=== PATIENT | female | born 1970 | race Two or more races ===

== ENCOUNTER 2017-02-20 17:56 | Emergency (ER) | payer SELFPAY ==
[~2017-02-20] VITALS: Ht 167.6 cm; Wt 76.2 kg
[2017-02-20 18:12] VITALS: BP 146/87
[2017-02-20] MEDS ORDERED: NAPROXEN 500 MG TABLET PO STA (19:05)
[2017-02-20] MEDS ORDERED: HYDROcodone/APAP 5/325MG 1 TAB TABLET PO ONE (19:15)
[2017-02-20] MEDS ORDERED: CYCLOBENZAPRINE 10 MG TABLET. PO ONE (19:15)
--- NOTE | 2017-02-20 19:27 | PHYS DOC ---
Past Medical History Past Medical History: No Pertinent History Past Surgical History: Alcohol Use: None Drug Use: None Adult General Chief Complaint Chief Complaint: MECHANICAL FALL HPI HPI Patient is a 46 year old female Polish-speaking female patient with her own historic interpreter who presents complaining of pain on her left mid back pain, low back and left lateral hip after falling. Patient states she was walking in her kitchen and the floor was wet, she did splits and fell on her buttocks. Patient denies any loss of consciousness. Denies any loss of bowel bladder function. Review of Systems Review of Systems Constitutional: Denies fever or chills [] Eyes: Denies change in visual acuity, redness, or eye pain [] HENT: Denies nasal congestion or sore throat [] Respiratory: Denies cough or shortness of breath [] Cardiovascular: No additional information not addressed in HPI [] GI: Denies abdominal pain, nausea, vomiting, bloody stools or diarrhea [] : Denies dysuria or hematuria [] Musculoskeletal: pain on her left mid back, low back and left lateral hip Integument: Denies rash or skin lesions [] Neurologic: Denies headache, focal weakness or sensory changes [] Endocrine: Denies polyuria or polydipsia [] Current Medications Current Medications Current Medications Medications (Trade) Dose Ordered Sig/Neena Start Time Stop Time Status Last Admin Dose Admin Acetaminophen/ Hydrocodone Bitart (Lortab 5/325) 1 tab 1X ONCE 02/20/17 19:15 02/20/17 19:16 DC 02/20/17 19:11 1 TAB Cyclobenzaprine HCl (Flexeril) 10 mg 1X ONCE 02/20/17 19:15 02/20/17 19:16 DC 02/20/17 19:11 10 MG Naproxen (Naprosyn) 500 mg 1X STAT 02/20/17 19:05 02/20/17 19:08 DC 02/20/17 19:11 500 MG Allergies Allergies Allergies Coded Allergies Type Severity Reaction Last Updated Verified No Known Drug Allergies 02/20/17 No Physical Exam Physical Exam Constitutional: Well developed, well nourished, no acute distress, non-toxic appearance. [] HENT: Normocephalic, atraumatic, bilateral external ears normal, oropharynx moist, no oral exudates, nose normal. [] Eyes: PERRLA, EOMI, conjunctiva normal, no discharge. [] Neck: Normal range of motion, no tenderness, supple, no stridor. [] Cardiovascular:Heart rate regular rhythm, no murmur [] Lungs & Thorax: Bilateral breath sounds clear to auscultation [] Abdomen: Bowel sounds normal, soft, no tenderness, no masses, no pulsatile masses. [] Skin: Warm, dry, no erythema, no rash. [] Back: Diffuse paraspinal muscle tenderness to bilateral thoracic and lumbar spine as well as slight midline tenderness to thoracic and lumbar spine , no CVA tenderness. [] Extremities: Left hip with no obvious deformity. Tenderness on palpation of the left lateral hip. Full range of motion to the left hip including internal rotation and external rotation flexion and extension of the left lower extremity. Pain noted on external rotation of the hip. +2 bilateral pedal pulses. Cap refill less than 2 seconds and left lower extremity. Sensation intact to the left lower extremity. Neurologic: Alert and oriented X 3, normal motor function, normal sensory function, no focal deficits noted. [] Psychologic: Affect normal, judgement normal, mood normal. [] Current Patient Data Vital Signs Vital Signs Date Time Temp Pulse Resp B/P (MAP) Pulse Ox O2 Delivery O2 Flow Rate FiO2 02/20/17 19:11 18 Room Air 02/20/17 18:12 98.2 72 100 98.2 EKG EKG [] Radiology/Procedures Radiology/Procedures [] Course & Med Decision Making Course & Med Decision Making Pertinent Labs and Imaging studies reviewed. (See chart for details) Patient is in the ED with left hip pain, mid and low back pain after falling today. Thoracic and lumbar spine CTs as interpreted by radiologist are negative for any acute findings. Left hip x-ray including pelvic interpreted by Dr. Rainey are negative for any acute findings. Patient was discharged with instructions to follow-up with her PCP in 1-2 weeks. She was provided prescription pain medicine including Tylenol 3's cyclobenzaprine and naproxen. Dragon Disclaimer Dragon Disclaimer This electronic medical record was generated, in whole or in part, using a voice recognition dictation system. Departure Departure Impression: Primary Impression: Fall from standing Additional Impressions: Lumbar contusion Thoracic sprain Sprain of left hip Disposition: 01 HOME, SELF-CARE Condition: STABLE Referrals: NO PCP (PCP) Follow-up with your doctor in one week Patient Instructions: Back Pain, Adult, Contusion, Hip Exercises, Generic, SportsMed Additional Instructions: You were seen for left hip pain or low back pain and mid back pain. Your hip x- rays were normal. Your CT of the thoracic spine and lumbar spine are normal. Take the prescribed pain medicine as needed. Ice and elevate the next affected areas. Follow-up with your doctor in 1-2 weeks. Scripts Cyclobenzaprine Hcl (CYCLOBENZAPRINE HCL) 10 Mg Tablet 1 TAB PO TID, #30 TAB Prov: GET PRUITT APRN 02/20/17 Naproxen (NAPROXEN) 375 Mg Tablet 1 TAB PO BID, #60 TAB 5 Refills Prov: GET PRUITT APRN 02/20/17 Acetaminophen With Codeine (TYLENOL WITH CODEINE #3 TABLET) 1 Each Tablet 1 TAB PO PRN Q6HRS Y for PAIN, #30 TAB Prov: GET PRUITT APRN 02/20/17 Problem Qualifiers Primary Impression: Fall from standing Encounter type: initial encounter Qualified Codes: W19.XXXA - Unspecified fall, initial encounter Additional Impressions: Lumbar contusion Encounter type: initial encounter Qualified Codes: S30.0XXA - Contusion of lower back and pelvis, initial encounter Sprain of left hip Encounter type: initial encounter Qualified Codes: S73.102A - Unspecified sprain of left hip, initial encounter GET PRUITT APRN Feb 20, 2017 19:27
--- NOTE | 2017-02-20 19:39 | RAD ---
Indication: Fall with upper and lower back pain. Axial imaging through the thoracic and lumbar spine was performed without contrast. Sagittal and coronal reformations were also performed. CT THORACIC: Curvature and alignment of the thoracic spine is normal. The vertebral body heights are maintained. No acute compression fracture is detected. There is generalized thoracic spondylosis with variable disc space narrowing and marginal spurring. The paraspinous tissues are unremarkable. IMPRESSION: Thoracic spondylosis. No acute bony abnormality is detected. CT lumbar spine: Curvature and alignment is normal. The vertebral body heights are well-maintained. No fracture is detected. The paraspinous tissues are normal. IMPRESSION: No acute bony abnormality is detected. Electronically signed by: Gus Faye MD (02/20/2017 7:35 PM)
[2017-02-20] MEDS ORDERED: ACET-704 PO (20:22)
[2017-02-20] MEDS ORDERED: CYCL10TA2 PO (20:22)
[2017-02-20] MEDS ORDERED: NAPR375T3 PO (20:22)
--- NOTE | 2017-02-21 09:23 | RAD ---
Indication fall, injury and pain. An AP view of the pelvis was obtained as well as AP and frog leg views targeted to the left hip. No bony abnormality is seen
== END 2017-02-20 20:30 | disposition home or self-care (01) ==
LOC: ER 17:56
DX: S23.3XXA Sprain of ligaments of thoracic spine, initial encounter (principal); S73.102A Unspecified sprain of left hip, initial encounter; S30.0XXA Contusion of lower back and pelvis, initial encounter; W01.0XXA Fall on same level from slipping, tripping and stumbling without subsequent striking against object, initial encounter; Y93.01 Activity, walking, marching and hiking; Y92.090 Kitchen in other non-institutional residence as the place of occurrence of the external cause; Y99.8 Other external cause status
CPT/HCPCS: 72128; 72131; 73502; 99284-25